=== PATIENT | male | born 1950 | race Caucasian/White ===

== ENCOUNTER 2016-12-26 12:50 | Inpatient (IN) | payer MEDICARE, OTHER ==
[~2016-12-26] VITALS: Ht 188 cm; Wt 79.7 kg
[2016-12-26] MEDS ORDERED: RISP.5 PO (13:17)
[2016-12-26] MEDS ORDERED: LEVO25TA9 PO (13:17)
[2016-12-26] MEDS ORDERED: ASPI-556 PO (13:17)
[2016-12-26] MEDS ORDERED: DONE5TAB5 PO (13:17)
[2016-12-26] MEDS ORDERED: TRAZ-144 PO (13:17)
[2016-12-26] MEDS ORDERED: GABA-529 PO (13:17)
[2016-12-26] MEDS ORDERED: CITA20TA9 PO (13:17)
[2016-12-26] MEDS ORDERED: ACETAMINOPHEN 500 MG TABLET PO ONE (13:30)
[2016-12-26 13:47] LABS: HEMATOCRIT 31.6 % (41-53); HEMOGLOBIN 10.6 g/dL (13.5-17.5); MEAN CORPUSCULAR HEMOGLOBIN 32.2 pg (26.0-34.0); MEAN CORPUSCULAR HGB CONC 33.5 G/dL (31.0-37.0); MEAN CORPUSCULAR VOLUME 96 fL (80-100); PLATELET COUNT (AUTO) 251 K/uL (150-450); RED BLOOD CELL COUNT(AUTO) 3.28 MIL/uL (4.50-5.90); RED CELL DISTRIBUTION WIDTH 12.9 % (11.5-14.5)
[2016-12-26 13:56] LABS: ANION GAP 11 mmol/L (8-16); CALCIUM, TOTAL 8.5 mg/dL (8.8-10.5); CARBON DIOXIDE 25 mmol/L (22-29); CHLORIDE 98 mmol/L (98-107); CREATININE 1.02 mg/dL (0.60-1.30); GLOMERULAR FILTR. RATE CALC > 60 mL/min (>60); GLUCOSE,RANDOM 125 mg/dL (70-110); POTASSIUM 3.8 mmol/L (3.5-5.1); SODIUM SERUM 134 mmol/L (136-145); UREA NITROGEN, BLOOD 10 mg/dL (7-18)
[2016-12-26 14:02] LABS: ALANINE AMINOTRANSFERASE 17 U/L (12-78); ALKALINE PHOSPHATASE 83 U/L (46-116); ASPARTATE AMINOTRANSFERASE 18 U/L (15-37); BAND NEUTROPHILS % (MANUAL) 14 % (1-5); BILIRUBIN,TOTAL 0.9 mg/dL (0.1-1.0); LYMPHOCYTES % (MANUAL) 16 % (22-44); MONOCYTES % (MANUAL) 1 % (2-9); SEGMENTED NEUTROPHILS % 69 % (40-70); TOTAL PROTEIN, SERUM 7.4 g/dL (6.4-8.2)
[2016-12-26 14:06] LABS: LACTIC ACID 1.5 mmol/L (0.4-2.0)
[2016-12-26 14:37] LABS: B-TYPE NATRIURETIC PEPTIDE 691 pg/mL (0-100)
[2016-12-26] MEDS ORDERED: AZITHROMYCIN 500 MG/NS 250 ML IV ONE (14:45)
[2016-12-26] MEDS ORDERED: CefTRIAXone 1 GM/DEXTROSE 50 ML IV ONE (14:45)
[2016-12-26] MEDS ORDERED: SODIUM CHLORIDE 0.9% 1,000 ML IV ONE (14:45)
[2016-12-26] MEDS ORDERED: IBUPROFEN 800 MG TABLET PO ONE (14:45)
[2016-12-26] MEDS ORDERED: 0.9% SODIUM CHLORIDE 10 ML SYRINGE IVP PRN (15:30)
[2016-12-26] MEDS ORDERED: ACETAMINOPHEN 325 MG TABLET PO PRN ×2 (15:30→17:30)
[2016-12-26 16:21] VITALS: BP 95/55
[2016-12-26] MEDS ORDERED: ALBUTEROL SULFATE 2.5 MG/0.5 ML NEB SOLUTION NEB PRN (17:30)
[2016-12-26] MEDS ORDERED: MAGNESIUM HYDROXIDE SUSPENSION 30 ML UDCUP PO PRN (17:30)
[2016-12-26] MEDS ORDERED: BISACODYL 10 MG RECTAL RECTAL SUPPOSITORY PR PRN (17:30)
[2016-12-26] MEDS ORDERED: ONDANSETRON HCL 4 MG/2 ML VIAL IVP PRN (17:30)
[2016-12-26] MEDS ORDERED: IPRATROPIUM BROMIDE 0.5 MG/2.5 ML NEB SOLUTION NEB PRN (17:30)
[2016-12-26] MEDS ORDERED: MORPHINE SULFATE 2 MG/ML SYRINGE IVP PRN (17:30)
[2016-12-26] MEDS ORDERED: ZOLPIDEM TARTRATE 5 MG TABLET PO PRN (17:30)
[2016-12-26] MEDS ORDERED: SODIUM CHLORIDE 0.9% 500 ML IV ONE (18:49)
[2016-12-26 19:45] VITALS: BP 102/61
[2016-12-26] MEDS: DOCUSATE SODIUM 100 MG CAPSULE PO SCH (20:57)
[2016-12-26] MEDS: RisperiDONE 0.5 MG TABLET PO SCH (20:58)
[2016-12-26] MEDS: GABAPENTIN 100 MG CAPSULE PO SCH (20:58)
[2016-12-26] MEDS: TraZODone HCL 50 MG TABLET PO SCH (20:58)
[2016-12-26] MEDS: DONEPEZIL HCL 5 MG TABLET PO SCH (20:58)
[2016-12-26 23:29] VITALS: BP 99/60
[2016-12-26] MEDS ORDERED: VANCOMYCIN HCL 1 GM/D5% WATER 200 ML IV SCH (23:45)
[2016-12-27] MEDS ORDERED: VANCOMYCIN HCL 1.5 GM in DEXTROSE 5%-WATER 250 ML IV ONE ×2
[2016-12-27] MEDS: HEPARIN SODIUM,PORCINE 5,000 UNITS/ML VIAL SQ SCH ×3 (00:24→17:17)
[2016-12-27] MEDS: PIPERACILLIN/TAZO 3.375 GM/D5W 50 ML IV SCH ×4 (02:09→20:56)
[2016-12-27 03:25] VITALS: BP 100/69
[2016-12-27] MEDS: LEVOTHYROXINE SODIUM 25 MCG TABLET PO SCH (06:06)
[2016-12-27 06:15] LABS: ANION GAP 8 mmol/L (8-16); CALCIUM, TOTAL 8.2 mg/dL (8.8-10.5); CARBON DIOXIDE 24 mmol/L (22-29); CHLORIDE 102 mmol/L (98-107); CREATININE 0.92 mg/dL (0.60-1.30); GLOMERULAR FILTR. RATE CALC > 60 mL/min (>60); GLUCOSE,RANDOM 107 mg/dL (70-110); POTASSIUM 3.5 mmol/L (3.5-5.1); SODIUM SERUM 134 mmol/L (136-145); UREA NITROGEN, BLOOD 11 mg/dL (7-18)
[2016-12-27 07:22] VITALS: BP 97/55
[2016-12-27] MEDS: RisperiDONE 0.5 MG TABLET PO SCH ×2 (09:29→20:58)
[2016-12-27] MEDS: CITALOPRAM HYDROBROMIDE 20 MG TABLET PO SCH (09:29)
[2016-12-27] MEDS: GABAPENTIN 100 MG CAPSULE PO SCH ×3 (09:29→20:56)
[2016-12-27] MEDS: ASPIRIN 81 MG EC TABLET PO SCH (09:29)
[2016-12-27] MEDS: VANCOMYCIN HCL 1 GM/D5% WATER 200 ML IV SCH ×2 (09:29→20:56)
[2016-12-27] MEDS: PANTOPRAZOLE SODIUM 40 MG/VIAL IVP SCH (09:29)
[2016-12-27] MEDS: DOCUSATE SODIUM 100 MG CAPSULE PO SCH ×2 (09:30→20:57)
[2016-12-27 11:35] VITALS: BP 114/55
[2016-12-27] MEDS ORDERED: INFLUENZA VIRUS VACCINE QVS 2017-18 (3YR+)/PF 60 MCG/0.5 ML SYRINGE IM ONE (13:00)
[2016-12-27 15:51] VITALS: BP 98/58
[2016-12-27 20:45] VITALS: BP 109/73
[2016-12-27] MEDS: DONEPEZIL HCL 5 MG TABLET PO SCH (20:57)
[2016-12-27] MEDS: TraZODone HCL 50 MG TABLET PO SCH (20:57)
[2016-12-27 23:18] VITALS: BP 90/57
[2016-12-28] MEDS: HEPARIN SODIUM,PORCINE 5,000 UNITS/ML VIAL SQ SCH ×4 (01:47→23:57)
[2016-12-28] MEDS: PIPERACILLIN/TAZO 3.375 GM/D5W 50 ML IV SCH ×5 (01:47→23:58)
[2016-12-28 04:57] VITALS: BP 97/47
[2016-12-28] MEDS: LEVOTHYROXINE SODIUM 25 MCG TABLET PO SCH (06:35)
[2016-12-28 07:30] VITALS: BP 93/53
[2016-12-28] MEDS: RisperiDONE 0.5 MG TABLET PO SCH ×2 (08:23→20:40)
[2016-12-28] MEDS: CITALOPRAM HYDROBROMIDE 20 MG TABLET PO SCH (08:23)
[2016-12-28] MEDS: GABAPENTIN 100 MG CAPSULE PO SCH ×3 (08:23→20:40)
[2016-12-28] MEDS: VANCOMYCIN HCL 1 GM/D5% WATER 200 ML IV SCH ×2 (08:23→20:40)
[2016-12-28] MEDS: PANTOPRAZOLE SODIUM 40 MG/VIAL IVP SCH (08:23)
[2016-12-28] MEDS: DOCUSATE SODIUM 100 MG CAPSULE PO SCH ×2 (08:24→20:40)
[2016-12-28] MEDS: ASPIRIN 81 MG EC TABLET PO SCH (08:24)
[2016-12-28 11:25] VITALS: BP 104/62
[2016-12-28] MEDS: HYDROCODONE/ACETAMINOPHEN 5-325 MG TABLET PO PRN (12:32)
[2016-12-28] MEDS ORDERED: SODIUM CHLORIDE 0.9% 500 ML IV ONE (12:36)
[2016-12-28 15:40] VITALS: BP 100/61
[2016-12-28 20:05] VITALS: BP 105/65
[2016-12-28] MEDS: DONEPEZIL HCL 5 MG TABLET PO SCH (20:40)
[2016-12-28] MEDS: TraZODone HCL 50 MG TABLET PO SCH (20:40)
[2016-12-28 23:30] VITALS: BP 109/68
[2016-12-29 03:30] VITALS: BP 119/73
[2016-12-29] MEDS: PIPERACILLIN/TAZO 3.375 GM/D5W 50 ML IV SCH ×4 (06:50→23:51)
[2016-12-29] MEDS: LEVOTHYROXINE SODIUM 25 MCG TABLET PO SCH (06:50)
[2016-12-29] MEDS: VANCOMYCIN HCL 1 GM/D5% WATER 200 ML IV SCH ×2 (08:15→20:03)
[2016-12-29] MEDS: HEPARIN SODIUM,PORCINE 5,000 UNITS/ML VIAL SQ SCH ×3 (08:16→23:52)
[2016-12-29] MEDS: DOCUSATE SODIUM 100 MG CAPSULE PO SCH ×2 (08:16→20:03)
[2016-12-29] MEDS: ASPIRIN 81 MG EC TABLET PO SCH (08:16)
[2016-12-29] MEDS: RisperiDONE 0.5 MG TABLET PO SCH ×2 (08:16→20:03)
[2016-12-29] MEDS: CITALOPRAM HYDROBROMIDE 20 MG TABLET PO SCH (08:16)
[2016-12-29] MEDS: PANTOPRAZOLE SODIUM 40 MG/VIAL IVP SCH (08:16)
[2016-12-29] MEDS: GABAPENTIN 100 MG CAPSULE PO SCH ×3 (08:16→20:04)
[2016-12-29 08:44] VITALS: BP 127/67
[2016-12-29 11:22] VITALS: BP 119/68
[2016-12-29 19:20] LABS: BASOPHILS % (AUTO) 0.6 % (0.0-2.0); EOSINOPHILS % (AUTO) 6.6 % (1.0-6.0); HEMATOCRIT 28.8 % (41-53); HEMOGLOBIN 9.9 g/dL (13.5-17.5); LYMPHOCYTES # (AUTO) 1.8 K/uL (1.0-4.8); LYMPHOCYTES % (AUTO) 26.7 % (22.0-44.0); MEAN CORPUSCULAR HEMOGLOBIN 32.7 pg (26.0-34.0); MEAN CORPUSCULAR HGB CONC 34.4 G/dL (31.0-37.0); MEAN CORPUSCULAR VOLUME 95 fL (80-100); MONOCYTES # (AUTO) 0.4 K/uL (0.1-1.0); MONOCYTES % (AUTO) 5.3 % (2.0-9.0); NEUTROPHILS # (AUTO) 4.1 K/uL (1.8-7.7); NEUTROPHILS % (AUTO) 60.8 % (40.0-70.0); PLATELET COUNT (AUTO) 310 K/uL (150-450); RED BLOOD CELL COUNT(AUTO) 3.03 MIL/uL (4.50-5.90); RED CELL DISTRIBUTION WIDTH 13.7 % (11.5-14.5)
[2016-12-29 19:32] LABS: ANION GAP 4 mmol/L (8-16); CALCIUM, TOTAL 8.4 mg/dL (8.8-10.5); CARBON DIOXIDE 29 mmol/L (22-29); CHLORIDE 105 mmol/L (98-107); CREATININE 1.04 mg/dL (0.60-1.30); GLOMERULAR FILTR. RATE CALC > 60 mL/min (>60); GLUCOSE,RANDOM 100 mg/dL (70-110); POTASSIUM 3.5 mmol/L (3.5-5.1); SODIUM SERUM 138 mmol/L (136-145); UREA NITROGEN, BLOOD 9 mg/dL (7-18)
[2016-12-29 19:38] LABS: ALANINE AMINOTRANSFERASE 13 U/L (12-78); ALBUMIN 2.2 g/dL (3.4-5.0); ALKALINE PHOSPHATASE 68 U/L (46-116); ASPARTATE AMINOTRANSFERASE 10 U/L (15-37); BILIRUBIN,TOTAL 0.3 mg/dL (0.1-1.0); TOTAL PROTEIN, SERUM 6.2 g/dL (6.4-8.2); VANCOMYCIN,RANDOM 21.2 mcg/mL (25.0-50.0)
[2016-12-29] MEDS: TraZODone HCL 50 MG TABLET PO SCH (20:03)
[2016-12-29] MEDS: DONEPEZIL HCL 5 MG TABLET PO SCH (20:03)
[2016-12-29 20:06] VITALS: BP 125/76
[2016-12-29 23:38] VITALS: BP 126/62
[2016-12-30 04:24] VITALS: BP 125/72
[2016-12-30] MEDS: PIPERACILLIN/TAZO 3.375 GM/D5W 50 ML IV SCH ×3 (05:56→17:18)
[2016-12-30] MEDS: LEVOTHYROXINE SODIUM 25 MCG TABLET PO SCH (05:56)
[2016-12-30] MEDS ORDERED: SODIUM CHLORIDE 0.9% 500 ML IV ONE (05:59)
[2016-12-30] MEDS: HYDROCODONE/ACETAMINOPHEN 5-325 MG TABLET PO PRN (06:02)
[2016-12-30 07:40] VITALS: BP 108/55
[2016-12-30] MEDS: VANCOMYCIN HCL 1 GM/D5% WATER 200 ML IV SCH (08:45)
[2016-12-30] MEDS: HEPARIN SODIUM,PORCINE 5,000 UNITS/ML VIAL SQ SCH ×2 (08:45→16:16)
[2016-12-30] MEDS: DOCUSATE SODIUM 100 MG CAPSULE PO SCH (08:46)
[2016-12-30] MEDS: GABAPENTIN 100 MG CAPSULE PO SCH ×2 (08:46→16:16)
[2016-12-30] MEDS: RisperiDONE 0.5 MG TABLET PO SCH (08:46)
[2016-12-30] MEDS: PANTOPRAZOLE SODIUM 40 MG/VIAL IVP SCH (08:46)
[2016-12-30] MEDS: ASPIRIN 81 MG EC TABLET PO SCH (08:46)
[2016-12-30] MEDS: CITALOPRAM HYDROBROMIDE 20 MG TABLET PO SCH (08:46)
[2016-12-30 10:05] LABS: BASOPHILS # (AUTO) 0.04 K/uL (0.00-0.20); BASOPHILS % (AUTO) 0.7 % (0.0-2.0); EOSINOPHILS # (AUTO) 0.42 K/uL (0.00-0.70); HEMATOCRIT 30.6 % (41-53); HEMOGLOBIN 10.1 g/dL (13.5-17.5); LYMPHOCYTES # (AUTO) 1.7 K/uL (1.0-4.8); LYMPHOCYTES % (AUTO) 31.2 % (22.0-44.0); MEAN CORPUSCULAR HEMOGLOBIN 32.2 pg (26.0-34.0); MEAN CORPUSCULAR HGB CONC 33.1 G/dL (31.0-37.0); MEAN CORPUSCULAR VOLUME 97 fL (80-100); MONOCYTES # (AUTO) 0.4 K/uL (0.1-1.0); MONOCYTES % (AUTO) 7.3 % (2.0-9.0); NEUTROPHILS % (AUTO) 53.4 % (40.0-70.0); PLATELET COUNT (AUTO) 310 K/uL (150-450); RED BLOOD CELL COUNT(AUTO) 3.15 MIL/uL (4.50-5.90); RED CELL DISTRIBUTION WIDTH 13.4 % (11.5-14.5)
[2016-12-30 10:26] LABS: ALANINE AMINOTRANSFERASE 13 U/L (12-78); ALBUMIN 2.1 g/dL (3.4-5.0); ALKALINE PHOSPHATASE 58 U/L (46-116); ANION GAP 5 mmol/L (8-16); ASPARTATE AMINOTRANSFERASE 10 U/L (15-37); BILIRUBIN,TOTAL 0.3 mg/dL (0.1-1.0); CALCIUM, TOTAL 8.1 mg/dL (8.8-10.5); CARBON DIOXIDE 28 mmol/L (22-29); CHLORIDE 105 mmol/L (98-107); CREATININE 1.05 mg/dL (0.60-1.30); GLOMERULAR FILTR. RATE CALC > 60 mL/min (>60); GLUCOSE,RANDOM 113 mg/dL (70-110); POTASSIUM 3.3 mmol/L (3.5-5.1); SODIUM SERUM 138 mmol/L (136-145); UREA NITROGEN, BLOOD 8 mg/dL (7-18); VANCOMYCIN,RANDOM 29.5 mcg/mL (25.0-50.0)
[2016-12-30 11:36] VITALS: BP 106/68
[2016-12-30 15:30] VITALS: BP 119/80
== END 2016-12-30 18:27 | DRG 872 ==
LOC: EMS 12:51 → 6N 15:41
PROVIDERS: ADMIT Hospitalist; ATTEND Hospitalist
PROC: 3E0234Z Introduction of Serum, Toxoid and Vaccine into Muscle, Percutaneous Approach (ICD-10-PCS; principal; 2016-12-27)
DX: A41.9 Sepsis, unspecified organism (principal); E44.0 Moderate protein-calorie malnutrition; I50.9 Heart failure, unspecified; F20.9 Schizophrenia, unspecified; A46 Erysipelas; D64.9 Anemia, unspecified; E11.9 Type 2 diabetes mellitus without complications; E03.9 Hypothyroidism, unspecified; L03.211 Cellulitis of face; E87.6 Hypokalemia; F17.200 Nicotine dependence, unspecified, uncomplicated; R09.02 Hypoxemia; Z23 Encounter for immunization
CPT/HCPCS: 83605; 87040; 87147; 90471; 93005; 96365; 96375; 99285; C9113; J0456; J0696; J1644; J2270; J2543; J3370; J7030; J7040; J7060

== ENCOUNTER 2018-06-26 07:37 | Emergency (ER) | payer MEDICARE ==
[~2018-06-26] VITALS: Ht 185.4 cm; Wt 86.8 kg
[~2018-06-26 07:37] MED LIST: ASPI-556 PO; CITA-106 PO; DONE5TAB5 PO; GABA-529 PO; LEVO25TA9 PO; RISP.5 PO; TRAZ-219 PO
[2018-06-26] MEDS ORDERED: FOLI1 PO (07:57)
[2018-06-26] MEDS ORDERED: METO25 PO (07:57)
[2018-06-26] MEDS ORDERED: FURO20 PO (07:57)
[2018-06-26 08:05] LABS: GLUCOSE,POINT OF CARE 74 MG/DL (70-110)
[2018-06-26 10:33] VITALS: BP 141/74
== END 2018-06-26 10:34 | disposition home or self-care (01) ==
LOC: EMS 07:39
DX: R33.9 Retention of urine, unspecified (principal); E11.9 Type 2 diabetes mellitus without complications; G89.29 Other chronic pain; Z79.899 Other long term (current) drug therapy
CPT/HCPCS: 51702

== ENCOUNTER 2018-06-26 15:08 | Emergency (ER) | payer MEDICARE ==
[~2018-06-26] VITALS: Ht 182.9 cm; Wt 86.4 kg
[~2018-06-26 15:08] MED LIST changes: +FOLI1 PO; +FURO20 PO; +METO25 PO; -TRAZ-219 PO; +TRAZ-252 PO
[2018-06-26 20:42] VITALS: BP 128/79
== END 2018-06-26 21:16 | disposition home or self-care (01) ==
LOC: EMS 15:10
DX: R33.9 Retention of urine, unspecified (principal); E11.9 Type 2 diabetes mellitus without complications; Z79.899 Other long term (current) drug therapy
CPT/HCPCS: 51702

== ENCOUNTER 2018-11-26 06:17 | Inpatient (IN) | payer MEDICARE ==
[~2018-11-26] VITALS: Ht 188 cm; Wt 87.6 kg
[~2018-11-26 06:17] MED LIST changes: -ASPI-556 PO
[2018-11-26 06:36] LABS: GLUCOSE,POINT OF CARE 113 MG/DL (70-110)
[2018-11-26] MEDS ORDERED: FINA5TAB41 PO (06:45)
[2018-11-26] MEDS ORDERED: MORPHINE SULFATE 4 MG/ML SYRINGE IVP ONE (06:45)
[2018-11-26 06:56] LABS: BASOPHILS % (AUTO) 0.4 % (0.0-2.0); EOSINOPHILS % (AUTO) 0.2 % (1.0-6.0); HEMATOCRIT 36.5 % (41-53); HEMOGLOBIN 12.8 g/dL (13.5-17.5); LYMPHOCYTES # (AUTO) 1.3 K/uL (1.0-4.8); LYMPHOCYTES % (AUTO) 12.6 % (22.0-44.0); MEAN CORPUSCULAR HEMOGLOBIN 32.2 pg (26.0-34.0); MEAN CORPUSCULAR HGB CONC 35.1 G/dL (31.0-37.0); MEAN CORPUSCULAR VOLUME 92 fL (80-100); MONOCYTES # (AUTO) 0.9 K/uL (0.1-1.0); MONOCYTES % (AUTO) 8.4 % (2.0-9.0); NEUTROPHILS # (AUTO) 8.3 K/uL (1.8-7.7); NEUTROPHILS % (AUTO) 78.4 % (40.0-70.0); PLATELET COUNT (AUTO) 172 K/uL (150-450); RED BLOOD CELL COUNT(AUTO) 3.97 MIL/uL (4.50-5.90)
[2018-11-26] MEDS ORDERED: ONDANSETRON HCL 4 MG/2 ML VIAL IVP ONE (07:00)
[2018-11-26 07:40] LABS: ALBUMIN 3.6 g/dL (3.4-5.0); BILIRUBIN,TOTAL 1.5 mg/dL (0.1-1.0); CALCIUM, TOTAL 8.8 mg/dL (8.8-10.5); CREATININE 1.19 mg/dL (0.60-1.30); FREE T4 (FREE THYROXINE) 1.54 ng/dL (0.76-1.46); POTASSIUM 4.5 mmol/L (3.5-5.1); THYROID STIMULATING HORMONE 3.83 uIU/mL (0.36-3.74); TOTAL PROTEIN, SERUM 6.9 g/dL (6.4-8.2)
[2018-11-26] MEDS ORDERED: SODIUM CHLORIDE 0.9% 500 ML IV ONE (07:45)
[2018-11-26 08:45] LABS: LACTIC ACID 4.2 mmol/L (0.4-2.0)
[2018-11-26 09:59] LABS: CALCIUM, TOTAL 8.6 mg/dL (8.8-10.5); CREATININE 1.26 mg/dL (0.60-1.30)
[2018-11-26 10:48] VITALS: BP 118/96
[2018-11-26] MEDS: MORPHINE SULFATE 2 MG/ML SYRINGE IVP PRN ×3 (12:02→21:26)
[2018-11-26] MEDS ORDERED: DILTIAZEM HCL 125 MG in DEXTROSE 5%-WATER 100 ML IV PRN (14:15)
[2018-11-26] MEDS ORDERED: SODIUM CHLORIDE 0.9% 1,000 ML IV SCH ×2 (14:45→17:45)
[2018-11-26] MEDS ORDERED: SODIUM CHLORIDE 3% 500 ML IV SCH (15:15)
[2018-11-26] MEDS ORDERED: MAGNESIUM HYDROXIDE SUSPENSION 30 ML UDCUP PO PRN (15:30)
[2018-11-26] MEDS ORDERED: ACETAMINOPHEN 325 MG TABLET PO PRN (15:30)
[2018-11-26] MEDS ORDERED: ONDANSETRON HCL 4 MG/2 ML VIAL IVP PRN (15:30)
[2018-11-26] MEDS ORDERED: 0.9% SODIUM CHLORIDE 10 ML SYRINGE IVP PRN (15:30)
[2018-11-26] MEDS ORDERED: INFLUENZA VIRUS VACCINE QVS 2019-20 (3YR+)/PF 60 MCG/0.5 ML SYRINGE IM ONE (16:15)
[2018-11-26] MEDS ORDERED: PNEUMOCOCCAL VACCINE POLYVALENT 0.5 ML VIAL [PPSV23] IM ONE (16:15)
[2018-11-26 16:47] LABS: THYROID STIMULATING HORMONE 2.45 uIU/mL (0.36-3.74)
[2018-11-26 17:05] LABS: ANION GAP 12 mmol/L (8-16); CARBON DIOXIDE 23 mmol/L (22-29); CHLORIDE 87 mmol/L (98-107); CREATININE 0.99 mg/dL (0.60-1.30); GLOMERULAR FILTR. RATE CALC > 60 mL/min (>60); GLUCOSE,RANDOM 120 mg/dL (70-110); POTASSIUM 3.8 mmol/L (3.5-5.1); UREA NITROGEN, BLOOD 10 mg/dL (7-18)
[2018-11-26] MEDS: FINASTERIDE 5 MG TABLET PO SCH (17:05)
[2018-11-26] MEDS: METOPROLOL TARTRATE 25 MG TABLET PO SCH (17:05)
[2018-11-26] MEDS: LEVOTHYROXINE SODIUM 25 MCG TABLET PO SCH (17:05)
[2018-11-26 17:06] LABS: CALCIUM, TOTAL 8.3 mg/dL (8.8-10.5)
[2018-11-26 17:11] LABS: SODIUM SERUM 122 mmol/L (136-145)
[2018-11-26] MEDS ORDERED: AmLODIPine BESYLATE 5 MG TABLET PO ONE (17:30)
[2018-11-26 18:42] LABS: SODIUM,URINE RANDOM 58 mmol/l (20-110)
[2018-11-26 18:47] LABS: APPEARANCE,URINE CLOUDY (CLEAR); BILIRUBIN,URINE NEGATIVE (NEGATIVE); GLUCOSE, URINE (UA) NEGATIVE (NEGATIVE); KETONES,URINE 40 mg/dL (NEGATIVE); LEUKOCYTE ESTERASE ,URINE LARGE (NEGATIVE); NITRATE,URINE POSITIVE (NEGATIVE); OCCULT BLOOD,URINE TRACE (NEGATIVE); OSMOLALITY,URINE 361 mOS/kg (50-1200); PH,URINE 6.5 (5.0-8.0); PROTEIN,URINE TRACE (NEGATIVE)
[2018-11-26 18:58] LABS: BACTERIA,URINE Few /HPF (None Seen); RBC,URINE 0-2 /HPF (0-2); WBC,URINE 26-50 /HPF (0-5)
[2018-11-26 18:59] LABS: AMORPHOUS SEDIMENT,UR Rare /LPF (None Seen); SQUAMOUS EPITHELIAL CELL,UR Rare /LPF (None Seen)
[2018-11-26 20:00] VITALS: BP 117/78
[2018-11-26 21:25] VITALS: BP 119/73
[2018-11-26] MEDS: TraZODone HCL 50 MG TABLET PO SCH (21:26)
[2018-11-26] MEDS: DOCUSATE SODIUM 100 MG CAPSULE PO SCH (21:26)
[2018-11-26 22:25] VITALS: BP 111/68
[2018-11-26] MEDS ORDERED: WATER FOR INJECTION STERILE IV SCH (23:30)
[2018-11-26] MEDS ORDERED: SODIUM CHLORIDE IV SCH (23:30)
[2018-11-27] VITALS (9 sets, daily range): BP systolic 93–134; BP diastolic 46–77
[2018-11-27] MEDS: MORPHINE SULFATE 2 MG/ML SYRINGE IVP PRN ×3 (03:45→15:34)
[2018-11-27 04:47] LABS: BASOPHILS % (AUTO) 0.4 % (0.0-2.0); EOSINOPHILS % (AUTO) 0.8 % (1.0-6.0); HEMATOCRIT 30.5 % (41-53); HEMOGLOBIN 10.7 g/dL (13.5-17.5); LYMPHOCYTES # (AUTO) 1.4 K/uL (1.0-4.8); LYMPHOCYTES % (AUTO) 19.2 % (22.0-44.0); MEAN CORPUSCULAR HEMOGLOBIN 32.3 pg (26.0-34.0); MEAN CORPUSCULAR HGB CONC 35.2 G/dL (31.0-37.0); MEAN CORPUSCULAR VOLUME 92 fL (80-100); MONOCYTES # (AUTO) 0.8 K/uL (0.1-1.0); MONOCYTES % (AUTO) 10.7 % (2.0-9.0); NEUTROPHILS # (AUTO) 5.2 K/uL (1.8-7.7); NEUTROPHILS % (AUTO) 68.9 % (40.0-70.0); PLATELET COUNT (AUTO) 141 K/uL (150-450); RED BLOOD CELL COUNT(AUTO) 3.32 MIL/uL (4.50-5.90); RED CELL DISTRIBUTION WIDTH 14.5 % (11.5-14.5)
[2018-11-27 05:23] LABS: ANION GAP 8 mmol/L (8-16); CALCIUM, TOTAL 8.4 mg/dL (8.8-10.5); CARBON DIOXIDE 25 mmol/L (22-29); CHLORIDE 91 mmol/L (98-107); CREATININE 0.96 mg/dL (0.60-1.30); GLOMERULAR FILTR. RATE CALC > 60 mL/min (>60); GLUCOSE,RANDOM 109 mg/dL (70-110); PHOSPHORUS 2.8 mg/dL (2.5-4.9); POTASSIUM 3.6 mmol/L (3.5-5.1); THYROID STIMULATING HORMONE 3.72 uIU/mL (0.36-3.74); UREA NITROGEN, BLOOD 9 mg/dL (7-18)
[2018-11-27 05:24] LABS: SODIUM SERUM 124 mmol/L (136-145)
[2018-11-27] MEDS: LEVOTHYROXINE SODIUM 25 MCG TABLET PO SCH (05:53)
[2018-11-27] MEDS ORDERED: MAGNESIUM SULFATE 2 GM in DEXTROSE 5%-WATER 50 ML IV ONE (08:30)
[2018-11-27] MEDS: FINASTERIDE 5 MG TABLET PO SCH (08:49)
[2018-11-27] MEDS: OxyCODONE HCL/ACETAMINOPHEN 5-325 MG TABLET PO PRN ×3 (08:49→23:38)
[2018-11-27] MEDS: DOCUSATE SODIUM 100 MG CAPSULE PO SCH ×2 (08:49→20:21)
[2018-11-27] MEDS: METOPROLOL TARTRATE 25 MG TABLET PO SCH (09:00)
[2018-11-27] MEDS ORDERED: SODIUM CHLORIDE 0.9% 250 ML IV ONE (09:49)
[2018-11-27] MEDS: CefTRIAXone 1 GM/DEXTROSE 50 ML IV SCH (15:23)
[2018-11-27] MEDS ORDERED: SODIUM CHLORIDE 1 GM TABLET PO SCH (18:00)
[2018-11-27] MEDS: TraZODone HCL 50 MG TABLET PO SCH (20:20)
[2018-11-27] MEDS ORDERED: SODIUM CHLORIDE 1 GM TABLET PO ONE (21:00)
[2018-11-28] VITALS (8 sets, daily range): BP systolic 95–134; BP diastolic 61–77
[2018-11-28] MEDS: MORPHINE SULFATE 2 MG/ML SYRINGE IVP PRN (01:58)
[2018-11-28] MEDS: SODIUM CHLORIDE 1 GM TABLET PO SCH ×5 (02:11→23:17)
[2018-11-28 04:57] LABS: BASOPHILS % (AUTO) 0.3 % (0.0-2.0); EOSINOPHILS % (AUTO) 1.8 % (1.0-6.0); HEMATOCRIT 27.4 % (41-53); HEMOGLOBIN 9.7 g/dL (13.5-17.5); LYMPHOCYTES # (AUTO) 1.4 K/uL (1.0-4.8); LYMPHOCYTES % (AUTO) 21.4 % (22.0-44.0); MEAN CORPUSCULAR HEMOGLOBIN 32.5 pg (26.0-34.0); MEAN CORPUSCULAR HGB CONC 35.2 G/dL (31.0-37.0); MEAN CORPUSCULAR VOLUME 92 fL (80-100); MONOCYTES # (AUTO) 0.9 K/uL (0.1-1.0); MONOCYTES % (AUTO) 13.5 % (2.0-9.0); NEUTROPHILS # (AUTO) 4.2 K/uL (1.8-7.7); PLATELET COUNT (AUTO) 118 K/uL (150-450); RED BLOOD CELL COUNT(AUTO) 2.97 MIL/uL (4.50-5.90); RED CELL DISTRIBUTION WIDTH 14.4 % (11.5-14.5)
[2018-11-28 05:10] LABS: ANION GAP 4 mmol/L (8-16); CALCIUM, TOTAL 8.3 mg/dL (8.8-10.5); CARBON DIOXIDE 27 mmol/L (22-29); CHLORIDE 100 mmol/L (98-107); CREATININE 0.97 mg/dL (0.60-1.30); GLOMERULAR FILTR. RATE CALC > 60 mL/min (>60); GLUCOSE,RANDOM 115 mg/dL (70-110); POTASSIUM 3.8 mmol/L (3.5-5.1); SODIUM SERUM 131 mmol/L (136-145); UREA NITROGEN, BLOOD 7 mg/dL (7-18)
[2018-11-28] MEDS: LEVOTHYROXINE SODIUM 25 MCG TABLET PO SCH (05:55)
[2018-11-28] MEDS: METOPROLOL TARTRATE 25 MG TABLET PO SCH (09:00)
[2018-11-28] MEDS: DOCUSATE SODIUM 100 MG CAPSULE PO SCH ×2 (09:00→22:02)
[2018-11-28] MEDS: FINASTERIDE 5 MG TABLET PO SCH (09:00)
[2018-11-28] MEDS ORDERED: BUPIVACAINE HCL/DEX-WATER/PF 0.75% 2 ML AMP ONE (11:43)
[2018-11-28] MEDS: CefTRIAXone 1 GM/DEXTROSE 50 ML IV SCH (14:45)
[2018-11-28] MEDS: TraZODone HCL 50 MG TABLET PO SCH (22:02)
[2018-11-29] VITALS (8 sets, daily range): BP systolic 103–124; BP diastolic 57–84
[2018-11-29] MEDS: SODIUM CHLORIDE 1 GM TABLET PO SCH ×3 (06:00→17:37)
[2018-11-29] MEDS: LEVOTHYROXINE SODIUM 25 MCG TABLET PO SCH ×2 (06:30→20:58)
[2018-11-29] MEDS ORDERED: LIDOCAINE/PF 1% 30 ML VIAL ONE (07:06)
[2018-11-29] MEDS ORDERED: SODIUM BICARBONATE 50 MEQ/50 ML VIAL ONE (07:06)
[2018-11-29] MEDS ORDERED: IOHEXOL 300 MG/ML 150 ML VIAL ONE (07:07)
[2018-11-29] MEDS ORDERED: HEPARIN SODIUM 1000 UNITS/NS 1,000 ML ONE (07:07)
[2018-11-29] MEDS ORDERED: FentaNYL CITRATE-PF 100 MCG/2 ML VIAL ONE (08:06)
[2018-11-29] MEDS ORDERED: MIDAZOLAM HCL 2 MG/2 ML VIAL ONE (08:07)
[2018-11-29] MEDS ORDERED: VERAPAMIL HCL 2.5 MG/ML 2 ML VIAL ONE (08:22)
[2018-11-29] MEDS ORDERED: NITROGLYCERIN 50 MG/D5% WATER 250 ML ONE (08:22)
[2018-11-29] MEDS ORDERED: HEPARIN SODIUM 1000 UNITS/NS 1,000 ML IARTER ONE (08:27)
[2018-11-29] MEDS ORDERED: SODIUM CHLORIDE 0.9% 500 ML IV ONE (08:27)
[2018-11-29] MEDS ORDERED: LIDOCAINE 1% 30 ML/SOD BICARB 8.4% 4 ML SQ ONE (08:30)
[2018-11-29] MEDS ORDERED: FentaNYL CITRATE-PF 100 MCG/2 ML VIAL IVP ONE (08:30)
[2018-11-29] MEDS ORDERED: IOHEXOL 300 MG/ML 150 ML VIAL IARTER ONE (08:30)
[2018-11-29] MEDS ORDERED: NITROGLYCERIN/D5W 50 MG/250 ML IV BOTTLE IARTER ONE (08:30)
[2018-11-29] MEDS ORDERED: VERAPAMIL HCL 2.5 MG/ML 2 ML VIAL IARTER ONE (08:30)
[2018-11-29] MEDS ORDERED: MIDAZOLAM HCL 2 MG/2 ML VIAL IVP ONE (08:30)
[2018-11-29] MEDS: DOCUSATE SODIUM 100 MG CAPSULE PO SCH ×2 (11:35→20:58)
[2018-11-29] MEDS: METOPROLOL TARTRATE 25 MG TABLET PO SCH (11:35)
[2018-11-29] MEDS: FINASTERIDE 5 MG TABLET PO SCH (11:35)
[2018-11-29] MEDS: MORPHINE SULFATE 2 MG/ML SYRINGE IVP PRN (12:11)
[2018-11-29] MEDS: CefTRIAXone 1 GM/DEXTROSE 50 ML IV SCH (16:56)
[2018-11-29 17:42] LABS: ANION GAP 10 mmol/L (8-16); CALCIUM, TOTAL 8.3 mg/dL (8.8-10.5); CARBON DIOXIDE 26 mmol/L (22-29); CHLORIDE 101 mmol/L (98-107); CREATININE 0.94 mg/dL (0.60-1.30); GLOMERULAR FILTR. RATE CALC > 60 mL/min (>60); GLUCOSE,RANDOM 139 mg/dL (70-110); POTASSIUM 3.5 mmol/L (3.5-5.1); SODIUM SERUM 137 mmol/L (136-145); UREA NITROGEN, BLOOD 8 mg/dL (7-18)
[2018-11-29] MEDS: TraZODone HCL 50 MG TABLET PO SCH (20:58)
[2018-11-30] VITALS (12 sets, daily range): BP systolic 94–140; BP diastolic 48–91
[2018-11-30] MEDS: SODIUM CHLORIDE 1 GM TABLET PO SCH ×5 (01:02→23:08)
[2018-11-30] MEDS: MORPHINE SULFATE 2 MG/ML SYRINGE IVP PRN ×3 (01:20→22:02)
[2018-11-30] MEDS ORDERED: SODIUM CHLORIDE 0.9% 250 ML IV ONE ×2 (05:04→20:30)
[2018-11-30] MEDS: LEVOTHYROXINE SODIUM 25 MCG TABLET PO SCH (06:01)
[2018-11-30] MEDS ORDERED: BUPIVACAINE HCL/PF 0.5% 30 ML VIAL ONE (06:21)
[2018-11-30] MEDS ORDERED: VANCOMYCIN HCL 1 GM/VIAL ONE (06:23)
[2018-11-30] MEDS ORDERED: MICROFIBRILLAR COLLAGEN 1 GM PACKAGE TP ONE (06:23)
[2018-11-30] MEDS ORDERED: SODIUM CHLORIDE 0.9% 10 ML ONE (06:23)
[2018-11-30] MEDS ORDERED: BUPIVACAINE LIPOSOME/PF 1.3%-13.3MG/ML SUSPENSION 20 ML VIAL INJ ONE (06:30)
[2018-11-30] MEDS ORDERED: DILTIAZEM HCL 5 MG/ML 5 ML VIAL IVP ONE (07:15)
[2018-11-30] MEDS ORDERED: SUGAMMADEX SODIUM 200 MG/2 ML VIAL IVP ONE (07:17)
[2018-11-30] MEDS ORDERED: DIGOXIN 250 MCG/ML 2 ML AMP IVP STA (07:26)
[2018-11-30] MEDS ORDERED: MUPIROCIN CALCIUM 2% 22 GM OINTMENT ONE (07:45)
[2018-11-30] MEDS: ENOXAPARIN SODIUM 30 MG/0.3 ML PF SYRINGE SQ SCH ×2 (10:10→20:28)
[2018-11-30] MEDS: DOCUSATE SODIUM 100 MG CAPSULE PO SCH ×2 (10:11→20:28)
[2018-11-30] MEDS: METOPROLOL TARTRATE 25 MG TABLET PO SCH (10:11)
[2018-11-30] MEDS: FINASTERIDE 5 MG TABLET PO SCH (10:11)
[2018-11-30 10:42] LABS: BASOPHILS % (AUTO) 0.3 % (0.0-2.0); EOSINOPHILS % (AUTO) 0.9 % (1.0-6.0); HEMATOCRIT 24.4 % (41-53); HEMOGLOBIN 8.6 g/dL (13.5-17.5); LYMPHOCYTES % (AUTO) 11.7 % (22.0-44.0); MEAN CORPUSCULAR HEMOGLOBIN 33.4 pg (26.0-34.0); MEAN CORPUSCULAR HGB CONC 35.1 G/dL (31.0-37.0); MEAN CORPUSCULAR VOLUME 95 fL (80-100); MONOCYTES # (AUTO) 0.8 K/uL (0.1-1.0); MONOCYTES % (AUTO) 10.1 % (2.0-9.0); NEUTROPHILS # (AUTO) 6.4 K/uL (1.8-7.7); PLATELET COUNT (AUTO) 161 K/uL (150-450); RED BLOOD CELL COUNT(AUTO) 2.56 MIL/uL (4.50-5.90); RED CELL DISTRIBUTION WIDTH 14.9 % (11.5-14.5)
[2018-11-30 10:56] LABS: ANION GAP 7 mmol/L (8-16); CALCIUM, TOTAL 7.8 mg/dL (8.8-10.5); CARBON DIOXIDE 27 mmol/L (22-29); CHLORIDE 102 mmol/L (98-107); CREATININE 0.77 mg/dL (0.60-1.30); GLOMERULAR FILTR. RATE CALC > 60 mL/min (>60); GLUCOSE,RANDOM 144 mg/dL (70-110); PHOSPHORUS 2.4 mg/dL (2.5-4.9); POTASSIUM 3.6 mmol/L (3.5-5.1); SODIUM SERUM 136 mmol/L (136-145); UREA NITROGEN, BLOOD 8 mg/dL (7-18)
[2018-11-30] MEDS: CefTRIAXone 1 GM/DEXTROSE 50 ML IV SCH (15:42)
[2018-11-30] MEDS: TraZODone HCL 50 MG TABLET PO SCH (20:28)
[2018-12-01] VITALS: BP 108/54
[2018-12-01] MEDS ORDERED: DEXAMETHASONE SOD PHOS 4 MG/ML VIAL IVP ONE (01:58)
[2018-12-01] MEDS ORDERED: ONDANSETRON HCL 4 MG/2 ML VIAL IVP ONE (01:58)
[2018-12-01] MEDS ORDERED: FentaNYL CITRATE-PF 100 MCG/2 ML VIAL IVP ONE (01:58)
[2018-12-01] MEDS ORDERED: LIDOCAINE/PF 2% 5 ML SYRINGE IVP ONE (01:58)
[2018-12-01] MEDS ORDERED: ROCURONIUM BROMIDE 10 MG/ML 5 ML VIAL IVP ONE (01:58)
[2018-12-01] MEDS ORDERED: LIDOCAINE/PF 2% 5 ML VIAL IM ONE (01:58)
[2018-12-01] MEDS ORDERED: MIDAZOLAM HCL 2 MG/2 ML VIAL IVP ONE (01:58)
[2018-12-01] MEDS ORDERED: PROPOFOL 1% 20 ML VIAL IVP ONE (01:58)
[2018-12-01 04:00] VITALS: BP 103/65
[2018-12-01] MEDS: SODIUM CHLORIDE 1 GM TABLET PO SCH ×4 (05:35→23:50)
[2018-12-01] MEDS: LEVOTHYROXINE SODIUM 25 MCG TABLET PO SCH (05:35)
[2018-12-01 08:00] VITALS: BP 103/66
[2018-12-01] MEDS: METOPROLOL TARTRATE 25 MG TABLET PO SCH ×2 (08:38→23:45)
[2018-12-01] MEDS: DOCUSATE SODIUM 100 MG CAPSULE PO SCH ×2 (08:39→20:37)
[2018-12-01] MEDS: FINASTERIDE 5 MG TABLET PO SCH (08:39)
[2018-12-01] MEDS: ENOXAPARIN SODIUM 30 MG/0.3 ML PF SYRINGE SQ SCH ×2 (08:39→20:37)
[2018-12-01] MEDS ORDERED: SODIUM PHOS,M-BASIC-D-BASIC 10 MEQ in DEXTROSE 5%-WATER 50 ML IV ONE (09:30)
[2018-12-01] MEDS ORDERED: MAGNESIUM SULFATE 1 GM in DEXTROSE 5%-WATER 50 ML IV ONE (09:30)
[2018-12-01] MEDS: ASPIRIN 81 MG EC TABLET PO SCH (11:12)
[2018-12-01] MEDS: PANTOPRAZOLE SODIUM 40 MG DR TABLET PO SCH (11:12)
[2018-12-01 12:18] VITALS: BP 102/66
[2018-12-01 15:11] VITALS: BP 119/95
[2018-12-01] MEDS: LEVOFLOXACIN 500 MG/D5% WATER 100 ML IV SCH (15:29)
[2018-12-01] MEDS: MORPHINE SULFATE 2 MG/ML SYRINGE IVP PRN (17:03)
[2018-12-01] MEDS ORDERED: POTASSIUM CHLORIDE 20 MEQ ER TABLET PO PRN (18:45)
[2018-12-01] MEDS ORDERED: MAGNESIUM SULFATE 4 GM/WATER 100 ML IV PRN (18:45)
[2018-12-01] MEDS ORDERED: MAGNESIUM OXIDE 400 MG TABLET PO PRN (18:45)
[2018-12-01] MEDS ORDERED: MAGNESIUM SULFATE 2 GM/WATER 50 ML IV PRN (18:45)
[2018-12-01] MEDS ORDERED: POTASSIUM CHL 10 MEQ/WATER 50 ML IV PRN (18:45)
[2018-12-01] MEDS ORDERED: METOPROLOL SUCCINATE 25 MG ER TABLET ONE (19:08)
[2018-12-01] MEDS ORDERED: METOPROLOL TARTRATE 25 MG TABLET PO ONE (19:08)
[2018-12-01 19:22] LABS: ALBUMIN 2.2 g/dL (3.4-5.0); MAGNESIUM 1.5 mg/dL (1.80-2.40); POTASSIUM 3.9 mmol/L (3.5-5.1)
[2018-12-01 20:26] VITALS: BP 99/67
[2018-12-01] MEDS: TraZODone HCL 50 MG TABLET PO SCH (20:37)
[2018-12-02] VITALS (21 sets, daily range): BP systolic 89–112; BP diastolic 53–78
[2018-12-02] MEDS: OxyCODONE HCL/ACETAMINOPHEN 5-325 MG TABLET PO PRN (03:39)
[2018-12-02] MEDS: SODIUM CHLORIDE 1 GM TABLET PO SCH ×3 (05:07→17:18)
[2018-12-02] MEDS: LEVOTHYROXINE SODIUM 25 MCG TABLET PO SCH (05:07)
[2018-12-02 07:35] LABS: BASOPHILS % (AUTO) 0.4 % (0.0-2.0); LYMPHOCYTES # (AUTO) 1.4 K/uL (1.0-4.8); LYMPHOCYTES % (AUTO) 24.7 % (22.0-44.0); MEAN CORPUSCULAR HEMOGLOBIN 32.3 pg (26.0-34.0); MEAN CORPUSCULAR HGB CONC 33.9 G/dL (31.0-37.0); MEAN CORPUSCULAR VOLUME 95 fL (80-100); MONOCYTES # (AUTO) 0.7 K/uL (0.1-1.0); MONOCYTES % (AUTO) 11.5 % (2.0-9.0); NEUTROPHILS # (AUTO) 3.5 K/uL (1.8-7.7); NEUTROPHILS % (AUTO) 60.4 % (40.0-70.0); PLATELET COUNT (AUTO) 174 K/uL (150-450); RED BLOOD CELL COUNT(AUTO) 2.17 MIL/uL (4.50-5.90); RED CELL DISTRIBUTION WIDTH 14.8 % (11.5-14.5)
[2018-12-02 07:39] LABS: HEMATOCRIT 20.6 % (41-53)
[2018-12-02 07:48] LABS: ALANINE AMINOTRANSFERASE 5 U/L (12-78); ALBUMIN 2.3 g/dL (3.4-5.0); ALKALINE PHOSPHATASE 64 U/L (46-116); ANION GAP 5 mmol/L (8-16); ASPARTATE AMINOTRANSFERASE 14 U/L (15-37); CALCIUM, TOTAL 7.9 mg/dL (8.8-10.5); CARBON DIOXIDE 30 mmol/L (22-29); CHLORIDE 101 mmol/L (98-107); CREATININE 0.81 mg/dL (0.60-1.30); GLOMERULAR FILTR. RATE CALC > 60 mL/min (>60); GLUCOSE,RANDOM 113 mg/dL (70-110); SODIUM SERUM 136 mmol/L (136-145); TOTAL PROTEIN, SERUM 5.2 g/dL (6.4-8.2); UREA NITROGEN, BLOOD 10 mg/dL (7-18)
[2018-12-02] MEDS: ASPIRIN 81 MG EC TABLET PO SCH (08:00)
[2018-12-02] MEDS: METOPROLOL TARTRATE 25 MG TABLET PO SCH ×2 (08:22→15:54)
[2018-12-02] MEDS: DOCUSATE SODIUM 100 MG CAPSULE PO SCH ×2 (08:22→20:16)
[2018-12-02] MEDS: PANTOPRAZOLE SODIUM 40 MG DR TABLET PO SCH (08:22)
[2018-12-02] MEDS: ENOXAPARIN SODIUM 30 MG/0.3 ML PF SYRINGE SQ SCH ×2 (08:23→20:19)
[2018-12-02] MEDS: FINASTERIDE 5 MG TABLET PO SCH (08:23)
[2018-12-02] MEDS ORDERED: DIGOXIN 250 MCG/ML 2 ML AMP IVP ONE (08:45)
[2018-12-02 09:28] LABS: ANION GAP 6 mmol/L (8-16); CARBON DIOXIDE 30 mmol/L (22-29); CHLORIDE 99 mmol/L (98-107); CREATININE 0.92 mg/dL (0.60-1.30); GLOMERULAR FILTR. RATE CALC > 60 mL/min (>60); GLUCOSE,RANDOM 153 mg/dL (70-110); PHOSPHORUS 2.5 mg/dL (2.5-4.9); POTASSIUM 3.5 mmol/L (3.5-5.1); SODIUM SERUM 135 mmol/L (136-145); UREA NITROGEN, BLOOD 9 mg/dL (7-18)
[2018-12-02] MEDS ORDERED: SODIUM CHLORIDE 0.9% 100 ML ONE ×2 (11:57→15:36)
[2018-12-02] MEDS: LEVOFLOXACIN 500 MG/D5% WATER 100 ML IV SCH (12:19)
[2018-12-02] MEDS: MORPHINE SULFATE 2 MG/ML SYRINGE IVP PRN (18:26)
[2018-12-02] MEDS: TraZODone HCL 50 MG TABLET PO SCH (20:16)
[2018-12-03] MEDS: SODIUM CHLORIDE 1 GM TABLET PO SCH ×3 (00:24→12:42)
[2018-12-03] MEDS: MORPHINE SULFATE 2 MG/ML SYRINGE IVP PRN ×2 (04:42→08:38)
[2018-12-03 05:06] VITALS: BP 110/54
[2018-12-03] MEDS: LEVOTHYROXINE SODIUM 25 MCG TABLET PO SCH (06:05)
[2018-12-03] MEDS: OxyCODONE HCL/ACETAMINOPHEN 5-325 MG TABLET PO PRN ×2 (06:06→12:42)
[2018-12-03 06:22] LABS: BASOPHILS % (AUTO) 0.6 % (0.0-2.0); EOSINOPHILS % (AUTO) 3.8 % (1.0-6.0); HEMATOCRIT 25.9 % (41-53); HEMOGLOBIN 8.9 g/dL (13.5-17.5); LYMPHOCYTES # (AUTO) 1.4 K/uL (1.0-4.8); LYMPHOCYTES % (AUTO) 25.4 % (22.0-44.0); MEAN CORPUSCULAR HEMOGLOBIN 31.5 pg (26.0-34.0); MEAN CORPUSCULAR HGB CONC 34.3 G/dL (31.0-37.0); MEAN CORPUSCULAR VOLUME 92 fL (80-100); MONOCYTES # (AUTO) 0.6 K/uL (0.1-1.0); MONOCYTES % (AUTO) 10.9 % (2.0-9.0); NEUTROPHILS # (AUTO) 3.4 K/uL (1.8-7.7); NEUTROPHILS % (AUTO) 59.3 % (40.0-70.0); PLATELET COUNT (AUTO) 198 K/uL (150-450); RED BLOOD CELL COUNT(AUTO) 2.82 MIL/uL (4.50-5.90); RED CELL DISTRIBUTION WIDTH 15.7 % (11.5-14.5)
[2018-12-03 07:12] LABS: ALANINE AMINOTRANSFERASE 9 U/L (12-78); ALBUMIN 2.3 g/dL (3.4-5.0); ALKALINE PHOSPHATASE 71 U/L (46-116); ANION GAP 10 mmol/L (8-16); ASPARTATE AMINOTRANSFERASE 17 U/L (15-37); BILIRUBIN,TOTAL 1.4 mg/dL (0.1-1.0); CALCIUM, TOTAL 8.1 mg/dL (8.8-10.5); CARBON DIOXIDE 27 mmol/L (22-29); CHLORIDE 99 mmol/L (98-107); CREATININE 0.71 mg/dL (0.60-1.30); GLOMERULAR FILTR. RATE CALC > 60 mL/min (>60); GLUCOSE,RANDOM 101 mg/dL (70-110); PHOSPHORUS 2.7 mg/dL (2.5-4.9); POTASSIUM 3.9 mmol/L (3.5-5.1); SODIUM SERUM 136 mmol/L (136-145); TOTAL PROTEIN, SERUM 5.5 g/dL (6.4-8.2); UREA NITROGEN, BLOOD 10 mg/dL (7-18)
[2018-12-03 07:50] VITALS: BP 116/76
[2018-12-03] MEDS: ASPIRIN 81 MG EC TABLET PO SCH (08:33)
[2018-12-03] MEDS: DOCUSATE SODIUM 100 MG CAPSULE PO SCH (08:33)
[2018-12-03] MEDS: FINASTERIDE 5 MG TABLET PO SCH (08:33)
[2018-12-03] MEDS: METOPROLOL TARTRATE 25 MG TABLET PO SCH ×3 (08:33→16:00)
[2018-12-03] MEDS: PANTOPRAZOLE SODIUM 40 MG DR TABLET PO SCH (08:33)
[2018-12-03] MEDS: ENOXAPARIN SODIUM 30 MG/0.3 ML PF SYRINGE SQ SCH (09:00)
[2018-12-03 11:51] VITALS: BP 105/63
[2018-12-03] MEDS: LEVOFLOXACIN 500 MG/D5% WATER 100 ML IV SCH (14:14)
[2018-12-03 15:58] VITALS: BP 102/63
== END 2018-12-03 17:15 | DRG 480 ==
LOC: EMS 06:17 → 5S 09:06 → ICU 10:25 → 5S 12-01 12:05
PROVIDERS: ADMIT Internal Medicine; ATTEND Internal Medicine
PROC: 4A023N7 Measurement of Cardiac Sampling and Pressure, Left Heart, Percutaneous Approach (ICD-10-PCS; 2018-11-29)
PROC: B2151ZZ Fluoroscopy of Left Heart using Low Osmolar Contrast (ICD-10-PCS; 2018-11-29)
PROC: B2111ZZ Fluoroscopy of Multiple Coronary Arteries using Low Osmolar Contrast (ICD-10-PCS; 2018-11-29)
PROC: 0SB90ZZ Excision of Right Hip Joint, Open Approach (ICD-10-PCS; 2018-11-30)
PROC: 0QS604Z Reposition Right Upper Femur with Internal Fixation Device, Open Approach (ICD-10-PCS; principal; 2018-11-30 07:00)
PROC: 30233N1 Transfusion of Nonautologous Red Blood Cells into Peripheral Vein, Percutaneous Approach (ICD-10-PCS; 2018-12-02)
DX: M80.051A Age-related osteoporosis with current pathological fracture, right femur, initial encounter for fracture (principal); G93.41 Metabolic encephalopathy; E87.2 Acidosis; E22.2 Syndrome of inappropriate secretion of antidiuretic hormone; N39.0 Urinary tract infection, site not specified; M25.051 Hemarthrosis, right hip; I47.1 Supraventricular tachycardia; S72.141A Displaced intertrochanteric fracture of right femur, initial encounter for closed fracture; I25.10 Atherosclerotic heart disease of native coronary artery without angina pectoris; F03.90 Unspecified dementia, unspecified severity, without behavioral disturbance, psychotic disturbance, mood disturbance, and anxiety; F25.9 Schizoaffective disorder, unspecified; I10 Essential (primary) hypertension; E83.42 Hypomagnesemia; E03.9 Hypothyroidism, unspecified; I48.91 Unspecified atrial fibrillation; E11.9 Type 2 diabetes mellitus without complications; S30.0XXA Contusion of lower back and pelvis, initial encounter; T38.895A Adverse effect of other hormones and synthetic substitutes, initial encounter; W18.39XA Other fall on same level, initial encounter; B96.5 Pseudomonas (aeruginosa) (mallei) (pseudomallei) as the cause of diseases classified elsewhere; R63.1 Polydipsia; G89.29 Other chronic pain; E78.5 Hyperlipidemia, unspecified; N40.0 Benign prostatic hyperplasia without lower urinary tract symptoms; Z79.01 Long term (current) use of anticoagulants; Y92.89 Other specified places as the place of occurrence of the external cause; Z79.899 Other long term (current) drug therapy; Y93.89 Activity, other specified; Y99.8 Other external cause status; Z87.891 Personal history of nicotine dependence
CPT/HCPCS: 70450; 72125; 73502; 73503; 82533; 83605; 83735; 83935; 84100; 84132; 84295; 84300; 84439; 84443; 86850; 86870; 86900; 86901; 86902; 86905; 86922; 87081; 87086; 93005; 93306; 97162; 97166; 97535; C9290; G0378; J0696; J1100; J1160; J1644; J1650; J1956; J2250; J2270; J2405; J2704; J3010; J3370; J3475; J3490; J7030; J7050; J7060; P9016; Q9967

== ENCOUNTER 2018-12-10 14:03 | Inpatient (IN) | payer MEDICARE ==
[~2018-12-10] VITALS: Ht 188 cm; Wt 84.5 kg
[~2018-12-10 14:03] MED LIST changes: +FINA5TAB41 PO; -FURO20 PO
[2018-12-10 15:36] VITALS: BP 103/64
[2018-12-10] MEDS ORDERED: INFLUENZA VIRUS VACCINE QVS 2019-20 (3YR+)/PF 60 MCG/0.5 ML SYRINGE IM ONE (18:15)
[2018-12-10 19:10] LABS: EOSINOPHILS % (AUTO) 3.3 % (1.0-6.0); HEMATOCRIT 30.4 % (41-53); HEMOGLOBIN 10.1 g/dL (13.5-17.5); LYMPHOCYTES # (AUTO) 1.2 K/uL (1.0-4.8); LYMPHOCYTES % (AUTO) 22.1 % (22.0-44.0); MEAN CORPUSCULAR HGB CONC 33.2 G/dL (31.0-37.0); MEAN CORPUSCULAR VOLUME 93 fL (80-100); MONOCYTES # (AUTO) 0.7 K/uL (0.1-1.0); MONOCYTES % (AUTO) 11.7 % (2.0-9.0); NEUTROPHILS # (AUTO) 3.4 K/uL (1.8-7.7); NEUTROPHILS % (AUTO) 61.9 % (40.0-70.0); PLATELET COUNT (AUTO) 437 K/uL (150-450); RED BLOOD CELL COUNT(AUTO) 3.26 MIL/uL (4.50-5.90); RED CELL DISTRIBUTION WIDTH 15.9 % (11.5-14.5)
[2018-12-10 19:37] VITALS: BP 118/77
[2018-12-10 19:39] LABS: ANION GAP 6 mmol/L (8-16); CALCIUM, TOTAL 8.2 mg/dL (8.8-10.5); CARBON DIOXIDE 28 mmol/L (22-29); CHLORIDE 101 mmol/L (98-107); CREATININE 0.81 mg/dL (0.60-1.30); GLOMERULAR FILTR. RATE CALC > 60 mL/min (>60); GLUCOSE,RANDOM 100 mg/dL (70-110); SODIUM SERUM 135 mmol/L (136-145); UREA NITROGEN, BLOOD 15 mg/dL (7-18)
[2018-12-10] MEDS ORDERED: METO25 PO (19:47)
[2018-12-10] MEDS ORDERED: PANT40TA25 PO (19:47)
[2018-12-10] MEDS ORDERED: TAMS-13 PO (19:47)
[2018-12-10] MEDS ORDERED: LEVO25TA9 PO (19:47)
[2018-12-10] MEDS ORDERED: CITA-106 PO (19:47)
[2018-12-10] MEDS ORDERED: RISP.5 PO (19:47)
[2018-12-10] MEDS ORDERED: DONE5TAB5 PO (19:47)
[2018-12-10] MEDS ORDERED: FINA5TAB41 PO (19:47)
[2018-12-10] MEDS ORDERED: GABA-529 PO (19:47)
[2018-12-10] MEDS ORDERED: DIGO125T84 PO (19:47)
[2018-12-10] MEDS ORDERED: TRAZ-252 PO (19:47)
[2018-12-10] MEDS ORDERED: DOCUSATE SODIUM 100 MG CAPSULE PO SCH (21:30)
[2018-12-10] MEDS ORDERED: ONDANSETRON HCL 4 MG/2 ML VIAL IVP PRN (21:30)
[2018-12-10] MEDS ORDERED: 0.9% SODIUM CHLORIDE 10 ML SYRINGE IVP PRN (21:30)
[2018-12-10] MEDS ORDERED: ZOLPIDEM TARTRATE 5 MG TABLET PO PRN (21:30)
[2018-12-10] MEDS ORDERED: ACETAMINOPHEN 325 MG TABLET PO PRN (21:30)
[2018-12-10] MEDS: SODIUM CHLORIDE 0.9% 1,000 ML IV SCH (21:45)
[2018-12-10 23:19] VITALS: BP 130/67
[2018-12-10] MEDS: MORPHINE SULFATE 2 MG/ML SYRINGE IVP PRN (23:28)
[2018-12-10] MEDS: DONEPEZIL HCL 5 MG TABLET PO SCH (23:49)
[2018-12-10] MEDS: TraZODone HCL 50 MG TABLET PO SCH (23:49)
[2018-12-11] VITALS (8 sets, daily range): BP systolic 80–160; BP diastolic 30–70
[2018-12-11] MEDS: TAMSULOSIN HCL 0.4 MG CAPSULE PO SCH ×2 (01:06→20:07)
[2018-12-11] MEDS: MORPHINE SULFATE 2 MG/ML SYRINGE IVP PRN ×2 (05:39→20:07)
[2018-12-11 06:25] LABS: BASOPHILS % (AUTO) 1.1 % (0.0-2.0); EOSINOPHILS % (AUTO) 4.5 % (1.0-6.0); HEMATOCRIT 30.6 % (41-53); HEMOGLOBIN 10.3 g/dL (13.5-17.5); LYMPHOCYTES # (AUTO) 1.6 K/uL (1.0-4.8); LYMPHOCYTES % (AUTO) 32.1 % (22.0-44.0); MEAN CORPUSCULAR HEMOGLOBIN 31.3 pg (26.0-34.0); MEAN CORPUSCULAR HGB CONC 33.7 G/dL (31.0-37.0); MEAN CORPUSCULAR VOLUME 93 fL (80-100); MONOCYTES # (AUTO) 0.7 K/uL (0.1-1.0); MONOCYTES % (AUTO) 14.2 % (2.0-9.0); NEUTROPHILS # (AUTO) 2.3 K/uL (1.8-7.7); NEUTROPHILS % (AUTO) 48.1 % (40.0-70.0); PLATELET COUNT (AUTO) 408 K/uL (150-450); RED CELL DISTRIBUTION WIDTH 15.7 % (11.5-14.5)
[2018-12-11] MEDS: LEVOTHYROXINE SODIUM 25 MCG TABLET PO SCH (06:30)
[2018-12-11 06:42] LABS: ANION GAP 11 mmol/L (8-16); CALCIUM, TOTAL 8.3 mg/dL (8.8-10.5); CARBON DIOXIDE 25 mmol/L (22-29); CHLORIDE 101 mmol/L (98-107); CREATININE 0.71 mg/dL (0.60-1.30); GLOMERULAR FILTR. RATE CALC > 60 mL/min (>60); GLUCOSE,RANDOM 89 mg/dL (70-110); POTASSIUM 3.7 mmol/L (3.5-5.1); SODIUM SERUM 137 mmol/L (136-145); UREA NITROGEN, BLOOD 11 mg/dL (7-18)
[2018-12-11] MEDS: FOLIC ACID 1 MG TABLET PO SCH (09:00)
[2018-12-11] MEDS: CITALOPRAM HYDROBROMIDE 20 MG TABLET PO SCH (09:00)
[2018-12-11] MEDS: PANTOPRAZOLE SODIUM 40 MG DR TABLET PO SCH (09:00)
[2018-12-11] MEDS: GABAPENTIN 100 MG CAPSULE PO SCH ×2 (09:00→20:07)
[2018-12-11] MEDS: RisperiDONE 0.5 MG TABLET PO SCH ×2 (09:00→21:08)
[2018-12-11] MEDS ORDERED: METOPROLOL TARTRATE 25 MG TABLET PO SCH (09:00)
[2018-12-11] MEDS ORDERED: DOCUSATE SODIUM 100 MG CAPSULE PO PRN (09:45)
[2018-12-11] MEDS: HEPARIN SODIUM,PORCINE 5,000 UNITS/ML VIAL SQ SCH ×2 (10:00→20:07)
[2018-12-11] MEDS ORDERED: SODIUM CL IRRIG SOLN BAG 3,000 ML IRRIG ONE (10:40)
[2018-12-11] MEDS ORDERED: MICROFIBRILLAR COLLAGEN 1 GM PACKAGE TP ONE (10:40)
[2018-12-11] MEDS ORDERED: MUPIROCIN CALCIUM 2% 22 GM OINTMENT ONE (10:40)
[2018-12-11] MEDS ORDERED: RINGERS SOLUTION,LACTATED 1,000 ML IV ONE ×2 (10:40→13:30)
[2018-12-11] MEDS ORDERED: VANCOMYCIN HCL 1 GM/VIAL ONE ×2 (10:40→14:43)
[2018-12-11] MEDS ORDERED: SODIUM CHLORIDE 0.9% 1,000 ML IV ONE ×4 (10:40→19:59)
[2018-12-11] MEDS ORDERED: BUPIVACAINE HCL/PF 0.5% 30 ML VIAL ONE (10:41)
[2018-12-11] MEDS ORDERED: BACITRACIN 50,000 UNITS/VIAL ONE (10:42)
[2018-12-11 11:52] LABS: INR 1.1 (0.9-1.1); PROTHROMBIN TIME 11.2 SEC (9.4-11.6)
[2018-12-11] MEDS ORDERED: PROPOFOL 1% 20 ML VIAL IVP ONE (12:00)
[2018-12-11] MEDS ORDERED: LIDOCAINE/PF 2% 5 ML SYRINGE IVP ONE (12:00)
[2018-12-11] MEDS ORDERED: ONDANSETRON HCL 4 MG/2 ML VIAL IVP ONE (12:00)
[2018-12-11] MEDS ORDERED: PHENYLEPHRINE HCL 10 MG/ML VIAL IVP ONE (12:00)
[2018-12-11] MEDS ORDERED: 0.9% SODIUM CHLORIDE 10 ML VIAL IVP ONE (12:00)
[2018-12-11] MEDS ORDERED: ROCURONIUM BROMIDE 10 MG/ML 5 ML VIAL IVP ONE (12:00)
[2018-12-11] MEDS ORDERED: DEXAMETHASONE SOD PHOS 4 MG/ML VIAL IVP ONE (12:00)
[2018-12-11] MEDS ORDERED: SUCCINYLCHOLINE CHLORIDE 20 MG/ML 10 ML VIAL IVP ONE (12:00)
[2018-12-11] MEDS ORDERED: TRANEXAMIC ACID 1,000 MG in DEXTROSE 5%-WATER 50 ML IV ONE ×2 (13:45→16:45)
[2018-12-11] MEDS ORDERED: DILTIAZEM HCL 125 MG in DEXTROSE 5%-WATER 100 ML IV PRN (14:00)
[2018-12-11] MEDS ORDERED: PHENYLEPHRINE 200 MG/D5%-WATER 250 ML IV PRN (14:00)
[2018-12-11] MEDS ORDERED: BUPIVACAINE LIPOSOME/PF 1.3%-13.3MG/ML SUSPENSION 20 ML VIAL INJ ONE (14:00)
[2018-12-11 14:20] LABS: ABG A-A DIFF O2 25.5 mmHg (10-20.0); ABG BASE EXCESS -0.6 mmol/L (-2.0-3.0); ABG HCO3 24.5 mmol/L (22.0-26.0); ABG METHEMOGLOBIN 0.3 % (0.0-1.5); ABG OXYGEN CONTENT 15.2 mL/dL (15.0-23.0); ABG OXYGEN SATURATION 96.9 % (95.0-98.0); ABG OXYHEMOGLOBIN 95.6 % (94.0-100.0); ABG PCO2 32 mmHg (35-45); ABG PH 7.479 (7.35-7.450); ABG TOTAL HEMOGLOBIN 11.2 G/dL (12.0-18.0); O2 DEVICE,BLOOD GAS ROOM AIR (ROOM AIR); PO2, ARTERIAL BG 86.4 mmHg (75.0-83.0); SITE, BLOOD GAS ARTERIAL LINE; SOURCE, BLOOD GAS ARTERIAL; TEMPERATURE, FAHRENHEIT, BG 98.6 FAHREN (96.0-98.6)
[2018-12-11 15:01] LABS: GLUCOMETER DEV NAME(LOC) 6N.1; GLUCOSE,POINT OF CARE 104 MG/DL (70-110)
[2018-12-11] MEDS ORDERED: CHLORHEXIDINE GLUCONATE 4% 118 ML TOPICAL LIQUID TP ONE (15:30)
[2018-12-11] MEDS ORDERED: DIGOXIN 250 MCG/ML 2 ML AMP IVP STA ×2 (15:38→15:39)
[2018-12-11] MEDS ORDERED: SODIUM BICARBONATE [ADULT] 8.4% 50 MEQ/50 ML SYRINGE IVP ONE (16:29)
[2018-12-11] MEDS ORDERED: ALBUMIN HUMAN 25%-12.5GM/50ML 50 ML ONE (16:29)
[2018-12-11] MEDS ORDERED: CALCIUM CHLORIDE 100 MG/ML 10 ML SYRINGE IVP ONE (16:29)
[2018-12-11] MEDS ORDERED: SUGAMMADEX SODIUM 200 MG/2 ML VIAL IVP ONE (17:03)
[2018-12-11 19:07] LABS: ABG A-A DIFF O2 75.3 mmHg (10-20.0); ABG BASE EXCESS -2.6 mmol/L (-2.0-3.0); ABG CARBOXYHEMOGLOBIN 0.3 % (0.0-1.5); ABG HCO3 22.6 mmol/L (22.0-26.0); ABG METHEMOGLOBIN 0.5 % (0.0-1.5); ABG OXYGEN CONTENT 15.6 mL/dL (15.0-23.0); ABG OXYGEN SATURATION 99.2 % (95.0-98.0); ABG OXYHEMOGLOBIN 98.4 % (94.0-100.0); ABG PCO2 37 mmHg (35-45); ABG PH 7.393 (7.35-7.450); ABG TOTAL HEMOGLOBIN 10.8 G/dL (12.0-18.0); SOURCE, BLOOD GAS ARTERIAL
[2018-12-11 19:08] LABS: SITE, BLOOD GAS ARTERIAL LINE
[2018-12-11 19:09] LABS: O2 DEVICE,BLOOD GAS SIMPLE MASK (ROOM AIR)
[2018-12-11] MEDS ORDERED: MORPHINE SULFATE 2 MG/ML SYRINGE ONE (19:58)
[2018-12-11] MEDS ORDERED: HEPARIN SODIUM,PORCINE 5,000 UNITS/ML VIAL ONE (19:58)
[2018-12-11] MEDS ORDERED: METOPROLOL TARTRATE 25 MG TABLET ONE (19:59)
[2018-12-11] MEDS ORDERED: TAMSULOSIN HCL 0.4 MG CAPSULE ONE (19:59)
[2018-12-11] MEDS: METOPROLOL TARTRATE 25 MG TABLET PO SCH (20:07)
[2018-12-11] MEDS: SODIUM CHLORIDE 0.9% 1,000 ML IV SCH (20:09)
[2018-12-11 20:15] LABS: INR 1.1 (0.9-1.1); PROTHROMBIN TIME 11.2 SEC (9.4-11.6)
[2018-12-11 20:24] LABS: HEMOGLOBIN 10.4 g/dL (13.5-17.5); MEAN CORPUSCULAR HEMOGLOBIN 30.9 pg (26.0-34.0); MEAN CORPUSCULAR HGB CONC 33.5 G/dL (31.0-37.0); MEAN CORPUSCULAR VOLUME 92 fL (80-100); PLATELET COUNT (AUTO) 346 K/uL (150-450); RED BLOOD CELL COUNT(AUTO) 3.37 MIL/uL (4.50-5.90); RED CELL DISTRIBUTION WIDTH 16.2 % (11.5-14.5)
[2018-12-11 20:46] LABS: ALANINE AMINOTRANSFERASE 12 U/L (12-78); ALBUMIN 2.6 g/dL (3.4-5.0); ALKALINE PHOSPHATASE 104 U/L (46-116); ANION GAP 6 mmol/L (8-16); ASPARTATE AMINOTRANSFERASE 18 U/L (15-37); BILIRUBIN,TOTAL 1.3 mg/dL (0.1-1.0); CALCIUM, TOTAL 8.2 mg/dL (8.8-10.5); CARBON DIOXIDE 28 mmol/L (22-29); CHLORIDE 103 mmol/L (98-107); GLOMERULAR FILTR. RATE CALC > 60 mL/min (>60); GLUCOSE,RANDOM 172 mg/dL (70-110); POTASSIUM 4.1 mmol/L (3.5-5.1); SODIUM SERUM 137 mmol/L (136-145); UREA NITROGEN, BLOOD 10 mg/dL (7-18)
[2018-12-11] MEDS: DONEPEZIL HCL 5 MG TABLET PO SCH (21:08)
[2018-12-11] MEDS: TraZODone HCL 50 MG TABLET PO SCH (21:08)
[2018-12-11 21:41] LABS: BAND NEUTROPHILS % (MANUAL) 15 % (0-5); LYMPHOCYTES % (MANUAL) 5 % (22-44); MONOCYTES % (MANUAL) 6 % (2-9); SEGMENTED NEUTROPHILS % 74 % (40-70)
[2018-12-11] MEDS: CeFAZolin 2 GM/DEXTROSE 50 ML IV SCH (23:47)
[2018-12-12] VITALS: BP 127/46
[2018-12-12 04:00] VITALS: BP 115/49
[2018-12-12 04:40] LABS: BASOPHILS % (AUTO) 0.2 % (0.0-2.0); EOSINOPHILS % (AUTO) 0 % (1.0-6.0); HEMATOCRIT 29.4 % (41-53); HEMOGLOBIN 10.1 g/dL (13.5-17.5); LYMPHOCYTES # (AUTO) 0.5 K/uL (1.0-4.8); LYMPHOCYTES % (AUTO) 5.9 % (22.0-44.0); MEAN CORPUSCULAR HEMOGLOBIN 31.4 pg (26.0-34.0); MEAN CORPUSCULAR HGB CONC 34.2 G/dL (31.0-37.0); MEAN CORPUSCULAR VOLUME 92 fL (80-100); MONOCYTES # (AUTO) 0.7 K/uL (0.1-1.0); MONOCYTES % (AUTO) 8.7 % (2.0-9.0); NEUTROPHILS # (AUTO) 7.1 K/uL (1.8-7.7); PLATELET COUNT (AUTO) 354 K/uL (150-450); RED BLOOD CELL COUNT(AUTO) 3.21 MIL/uL (4.50-5.90); RED CELL DISTRIBUTION WIDTH 15.7 % (11.5-14.5)
[2018-12-12 04:42] LABS: NEUTROPHILS % (AUTO) 85.2 % (40.0-70.0)
[2018-12-12 04:49] LABS: ANION GAP 8 mmol/L (8-16); CARBON DIOXIDE 26 mmol/L (22-29); CHLORIDE 102 mmol/L (98-107); CREATININE 0.68 mg/dL (0.60-1.30); GLOMERULAR FILTR. RATE CALC > 60 mL/min (>60); GLUCOSE,RANDOM 133 mg/dL (70-110); POTASSIUM 4.2 mmol/L (3.5-5.1); SODIUM SERUM 136 mmol/L (136-145); UREA NITROGEN, BLOOD 10 mg/dL (7-18)
[2018-12-12] MEDS: LEVOTHYROXINE SODIUM 25 MCG TABLET PO SCH (05:31)
[2018-12-12 08:00] VITALS: BP 137/57
[2018-12-12] MEDS: CeFAZolin 2 GM/DEXTROSE 50 ML IV SCH ×2 (09:34→15:57)
[2018-12-12] MEDS: CITALOPRAM HYDROBROMIDE 20 MG TABLET PO SCH (09:35)
[2018-12-12] MEDS: RisperiDONE 0.5 MG TABLET PO SCH ×2 (09:35→20:38)
[2018-12-12] MEDS: GABAPENTIN 100 MG CAPSULE PO SCH ×3 (09:37→20:38)
[2018-12-12] MEDS: FOLIC ACID 1 MG TABLET PO SCH (09:39)
[2018-12-12] MEDS: HEPARIN SODIUM,PORCINE 5,000 UNITS/ML VIAL SQ SCH ×2 (09:39→20:38)
[2018-12-12] MEDS: METOPROLOL TARTRATE 25 MG TABLET PO SCH ×2 (09:39→20:38)
[2018-12-12] MEDS: PANTOPRAZOLE SODIUM 40 MG DR TABLET PO SCH (09:40)
[2018-12-12] MEDS: MORPHINE SULFATE 2 MG/ML SYRINGE IVP PRN ×2 (11:41→16:52)
[2018-12-12 11:45] VITALS: BP 116/46
[2018-12-12 12:00] VITALS: BP 121/50
[2018-12-12] MEDS ORDERED: FentaNYL CITRATE-PF 250 MCG/5 ML VIAL IVP ONE (12:00)
[2018-12-12] MEDS: SODIUM CHLORIDE 0.9% 1,000 ML IV SCH (13:25)
[2018-12-12 16:00] VITALS: BP 133/52
[2018-12-12] MEDS: TAMSULOSIN HCL 0.4 MG CAPSULE PO SCH (20:38)
[2018-12-12] MEDS: TraZODone HCL 50 MG TABLET PO SCH (20:38)
[2018-12-12] MEDS: DONEPEZIL HCL 5 MG TABLET PO SCH (20:38)
[2018-12-13] MEDS: CeFAZolin 2 GM/DEXTROSE 50 ML IV SCH ×3 (00:08→16:40)
[2018-12-13 05:18] LABS: BASOPHILS % (AUTO) 0.9 % (0.0-2.0); EOSINOPHILS % (AUTO) 1.8 % (1.0-6.0); HEMATOCRIT 25.2 % (41-53); HEMOGLOBIN 8.5 g/dL (13.5-17.5); LYMPHOCYTES # (AUTO) 1.4 K/uL (1.0-4.8); MEAN CORPUSCULAR HEMOGLOBIN 31.2 pg (26.0-34.0); MEAN CORPUSCULAR HGB CONC 33.8 G/dL (31.0-37.0); MEAN CORPUSCULAR VOLUME 92 fL (80-100); MONOCYTES # (AUTO) 0.9 K/uL (0.1-1.0); MONOCYTES % (AUTO) 15.7 % (2.0-9.0); NEUTROPHILS # (AUTO) 3.5 K/uL (1.8-7.7); NEUTROPHILS % (AUTO) 58.6 % (40.0-70.0); PLATELET COUNT (AUTO) 297 K/uL (150-450); RED BLOOD CELL COUNT(AUTO) 2.73 MIL/uL (4.50-5.90); RED CELL DISTRIBUTION WIDTH 15.8 % (11.5-14.5)
[2018-12-13 05:25] LABS: ANION GAP 5 mmol/L (8-16); CALCIUM, TOTAL 7.9 mg/dL (8.8-10.5); CARBON DIOXIDE 27 mmol/L (22-29); CHLORIDE 100 mmol/L (98-107); GLOMERULAR FILTR. RATE CALC > 60 mL/min (>60); GLUCOSE,RANDOM 101 mg/dL (70-110); POTASSIUM 3.5 mmol/L (3.5-5.1); SODIUM SERUM 132 mmol/L (136-145); UREA NITROGEN, BLOOD 9 mg/dL (7-18)
[2018-12-13] MEDS: LEVOTHYROXINE SODIUM 25 MCG TABLET PO SCH (05:36)
[2018-12-13] MEDS: SODIUM CHLORIDE 0.9% 1,000 ML IV SCH ×2 (05:36→21:59)
[2018-12-13] MEDS: CITALOPRAM HYDROBROMIDE 20 MG TABLET PO SCH (08:47)
[2018-12-13] MEDS: GABAPENTIN 100 MG CAPSULE PO SCH ×3 (08:47→20:51)
[2018-12-13] MEDS: FOLIC ACID 1 MG TABLET PO SCH (08:47)
[2018-12-13] MEDS: METOPROLOL TARTRATE 25 MG TABLET PO SCH ×2 (08:47→20:52)
[2018-12-13] MEDS: PANTOPRAZOLE SODIUM 40 MG DR TABLET PO SCH (08:47)
[2018-12-13] MEDS: RisperiDONE 0.5 MG TABLET PO SCH ×2 (08:47→20:51)
[2018-12-13] MEDS: HEPARIN SODIUM,PORCINE 5,000 UNITS/ML VIAL SQ SCH ×2 (08:48→20:51)
[2018-12-13] MEDS: MORPHINE SULFATE 2 MG/ML SYRINGE IVP PRN (08:49)
[2018-12-13 11:33] VITALS: BP 93/59
[2018-12-13 15:29] VITALS: BP 90/60
[2018-12-13 19:50] VITALS: BP 123/77
[2018-12-13] MEDS: TAMSULOSIN HCL 0.4 MG CAPSULE PO SCH (20:51)
[2018-12-13] MEDS: TraZODone HCL 50 MG TABLET PO SCH (20:51)
[2018-12-13] MEDS: DONEPEZIL HCL 5 MG TABLET PO SCH (20:51)
[2018-12-13 23:40] VITALS: BP 120/68
[2018-12-14 05:05] VITALS: BP 118/72
[2018-12-14] MEDS: LEVOTHYROXINE SODIUM 25 MCG TABLET PO SCH (06:26)
[2018-12-14 08:04] VITALS: BP 129/75
[2018-12-14] MEDS: GABAPENTIN 100 MG CAPSULE PO SCH ×2 (10:33→17:07)
[2018-12-14] MEDS: RisperiDONE 0.5 MG TABLET PO SCH (10:33)
[2018-12-14] MEDS: CITALOPRAM HYDROBROMIDE 20 MG TABLET PO SCH (10:35)
[2018-12-14] MEDS: METOPROLOL TARTRATE 25 MG TABLET PO SCH (10:36)
[2018-12-14] MEDS: FOLIC ACID 1 MG TABLET PO SCH (10:36)
[2018-12-14] MEDS: HEPARIN SODIUM,PORCINE 5,000 UNITS/ML VIAL SQ SCH (10:36)
[2018-12-14] MEDS: PANTOPRAZOLE SODIUM 40 MG DR TABLET PO SCH (10:49)
[2018-12-14 12:07] VITALS: BP 118/65
[2018-12-14] MEDS: SODIUM CHLORIDE 0.9% 1,000 ML IV SCH (14:40)
[2018-12-14 16:03] VITALS: BP 108/69
[2018-12-14] MEDS ORDERED: APIXABAN 5 MG TABLET PO SCH (21:00)
[2018-12-14] MEDS ORDERED: SULFAMETHOX/TRIMETH DS 800-160 MG/TABLET PO SCH (21:00)
== END 2018-12-14 18:00 | DRG 469 ==
LOC: 6N 15:10 → ICU 12-11 18:30 → 4E 12-13 11:30
PROVIDERS: ADMIT Internal Medicine; ATTEND Internal Medicine
PROC: 3E02340 Introduction of Influenza Vaccine into Muscle, Percutaneous Approach (ICD-10-PCS; 2018-12-10)
PROC: 0SRR0JZ Replacement of Right Hip Joint, Femoral Surface with Synthetic Substitute, Open Approach (ICD-10-PCS; 2018-12-11)
PROC: 0S990ZZ Drainage of Right Hip Joint, Open Approach (ICD-10-PCS; 2018-12-11)
PROC: 0MBL0ZZ Excision of Right Hip Bursa and Ligament, Open Approach (ICD-10-PCS; 2018-12-11)
PROC: BQ101ZZ Fluoroscopy of Right Hip using Low Osmolar Contrast (ICD-10-PCS; 2018-12-11)
PROC: 30233K1 Transfusion of Nonautologous Frozen Plasma into Peripheral Vein, Percutaneous Approach (ICD-10-PCS; 2018-12-11)
PROC: 30233N1 Transfusion of Nonautologous Red Blood Cells into Peripheral Vein, Percutaneous Approach (ICD-10-PCS; 2018-12-11)
PROC: 02HV33Z Insertion of Infusion Device into Superior Vena Cava, Percutaneous Approach (ICD-10-PCS; 2018-12-11)
PROC: 0QS604Z Reposition Right Upper Femur with Internal Fixation Device, Open Approach (ICD-10-PCS; principal; 2018-12-11 15:00)
DX: T84.090A Other mechanical complication of internal right hip prosthesis, initial encounter (principal); S72.111A Displaced fracture of greater trochanter of right femur, initial encounter for closed fracture; E43 Unspecified severe protein-calorie malnutrition; S72.141A Displaced intertrochanteric fracture of right femur, initial encounter for closed fracture; E22.2 Syndrome of inappropriate secretion of antidiuretic hormone; I47.2 Ventricular tachycardia; M25.051 Hemarthrosis, right hip; N39.0 Urinary tract infection, site not specified; E11.9 Type 2 diabetes mellitus without complications; I10 Essential (primary) hypertension; I48.91 Unspecified atrial fibrillation; B96.5 Pseudomonas (aeruginosa) (mallei) (pseudomallei) as the cause of diseases classified elsewhere; J44.9 Chronic obstructive pulmonary disease, unspecified; D64.9 Anemia, unspecified; E03.9 Hypothyroidism, unspecified; B86 Scabies; Y79.2 Prosthetic and other implants, materials and accessory orthopedic devices associated with adverse incidents; E78.5 Hyperlipidemia, unspecified; F03.90 Unspecified dementia, unspecified severity, without behavioral disturbance, psychotic disturbance, mood disturbance, and anxiety; F20.9 Schizophrenia, unspecified; I25.10 Atherosclerotic heart disease of native coronary artery without angina pectoris; R63.1 Polydipsia; S30.0XXA Contusion of lower back and pelvis, initial encounter; Z82.49 Family history of ischemic heart disease and other diseases of the circulatory system; Z83.3 Family history of diabetes mellitus; Z87.891 Personal history of nicotine dependence; Z23 Encounter for immunization; Z79.899 Other long term (current) drug therapy; Z68.23 Body mass index [BMI] 23.0-23.9, adult; Y92.89 Other specified places as the place of occurrence of the external cause
CPT/HCPCS: 82805; 83735; 86850; 86870; 86900; 86901; 86905; 86922; 86927; 87081; 88300; 90686; 93005; 97162; 97530; C9290; G0378; J0330; J0690; J1100; J1160; J1644; J2270; J2370; J2405; J2704; J3010; J3370; J3490; J7030; J7040; J7060; J7120; P9016; P9017; P9047